=== PATIENT | female | born 1970 | race Caucasian/White ===

== ENCOUNTER → 2018-04-09 | Outpatient (CLI) | payer OTHER ==
--- NOTE | 2018-04-09 15:45 | DIAGNOSTIC IMAGING REPORT ---
ULTRASOUND OF THE THYROID GLAND CLINICAL HISTORY: Abnormal serum thyroid function studies. COMPARISON STUDY: No priors. TECHNIQUE: Real-time, grayscale, and color flow sonography of the thyroid gland is performed utilizing a high-frequency linear transducer. Images are reviewed in the transverse and longitudinal planes. FINDINGS: Right lobe: The right lobe of the thyroid gland is normal in size and homogeneous in echotexture, measuring 4.2 x 2.1 x 2.2 cm. There is a heterogeneous solid nodule in the central gland which measures 3.1 x 2.0 x 1.9 cm. This demonstrates internal flow on color imaging. A solid and cystic nodule in the anterior midpole measures 2.3 x 1.1 x 1.6 cm. Left lobe: The left lobe of the thyroid gland is normal in size and homogeneous in echotexture, measuring 5.7 x 2.6 x 3.1 cm. A large heterogeneous solid nodule measures 3.8 x 2.4 x 2.6 cm. This demonstrates internal flow on color imaging. Isthmus: The thyroid isthmus is normal in appearance and measures 0.3 cm in AP diameter. IMPRESSION: There are dominant solid nodules identified within both thyroid lobes. Fine-needle aspiration of both nodules is recommended based on size criteria. Electronically signed by: Chung Gan M.D. 04/09/2018 3:44 PM Dictated Date/Time: 04/09/2018 3:42 PM
== END | disposition home or self-care (01) ==
LOC: C.ULTRBC 15:20
PROVIDERS: ATTEND Family Medicine
DX: R94.6 Abnormal results of thyroid function studies (principal)

== ENCOUNTER → 2018-04-19 | Outpatient (CLI) | payer OTHER ==
--- NOTE | 2018-04-19 15:04 | DIAGNOSTIC IMAGING REPORT ---
GUIDANCE NEEDLE PLACEMENT CLINICAL HISTORY: THYROID NODULE - US DONE [facility] 04/09/18 TECHNIQUE: Ultrasound-guided fine-needle aspiration COMPARISON STUDY: Thyroid ultrasound 04/09/2018 FINDINGS: Under ultrasound guidance, 3 passes with a 25-gauge needle were made to the dominant nodule of the right thyroid. There are no combinations. Pathology is pending. IMPRESSION: Fine-needle aspiration right thyroid under ultrasound guidance. The above report was generated using voice recognition software. It may contain grammatical, syntax or spelling errors. Electronically signed by: Chandra Murphy M.D. 04/19/2018 3:02 PM Dictated Date/Time: 04/19/2018 3:01 PM
--- NOTE | 2018-04-19 15:04 | DIAGNOSTIC IMAGING REPORT ---
GUIDANCE NEEDLE PLACEMENT CLINICAL HISTORY: - Thyroid nodule TECHNIQUE: Ultrasound-guided fine-needle aspiration COMPARISON STUDY: Thyroid ultrasound 04/09/2018 FINDINGS: Following informed consent, 3 passes with a 25-gauge needle were made to the dominant nodule of the left thyroid. There are no complications. IMPRESSION: Ultrasound-guided fine-needle aspiration left thyroid nodule. The above report was generated using voice recognition software. It may contain grammatical, syntax or spelling errors. Electronically signed by: Chandra Murphy M.D. 04/19/2018 3:03 PM Dictated Date/Time: 04/19/2018 3:02 PM
== END | disposition home or self-care (01) ==
LOC: C.ULTR 12:35
PROVIDERS: ATTEND Family Medicine
DX: E04.2 Nontoxic multinodular goiter (principal)